=== PATIENT | female | born 1935 | race Caucasian/White ===

== ENCOUNTER 2017-06-22 19:33 | Emergency (ER) | payer MEDICARE, BC ==
[2017-06-22] MEDS ORDERED: HYDROcodone/Acetaminophen 5/325 mg Tablet ONE (22:10)
--- NOTE | 2017-06-22 22:12 | RAD ---
LEFT FEMUR TWO VIEWS: 06/22/17 HISTORY: 82-year-old female with history of femur pain following an injury. No evidence for acute fracture or dislocation. IMPRESSION: No fracture or dislocation. POS: KEYA
--- NOTE | 2017-06-22 22:37 | CT ---
LUMBAR SPINE CT WITHOUT IV CONTRAST: 06/22/17 HISTORY: 82-year-old female with low back pain following a fall on Tuesday. There is heterogeneous bone demineralization. There is some generalized spondylosis. There is partial ly visualized low attenuation focus in the liver measuring approximately 2.3 cm, I favor this being a cyst although it is completely seen and incompletely evaluated. There is some disc bulging at L3-L4 with some moderate lateral recess stenosis and foraminal stenosis. At L4-L5, mild lateral recess stenosis and foraminal stenosis. Disc bulging and disc osteophytosis at L5-S1 with mild lateral recess stenosis. IMPRESSION: No evidence for acute lumbar spine fracture or dislocation. Bone demineralization. Variable severity canal, lateral recess, and foraminal stenosis as above. Mild levoscoliosis. POS: KEYA
== END 2017-06-22 22:35 | disposition home or self-care (01) ==
LOC: ERS 19:33
DX: M54.5 Low back pain (principal); M79.652 Pain in left thigh; I48.91 Unspecified atrial fibrillation; E11.9 Type 2 diabetes mellitus without complications; E78.5 Hyperlipidemia, unspecified; I10 Essential (primary) hypertension; Z79.899 Other long term (current) drug therapy; Z79.82 Long term (current) use of aspirin
CPT/HCPCS: 72131

== ENCOUNTER 2018-12-20 12:45 | Outpatient (CLI) | payer MEDICARE, BC ==
--- NOTE | 2018-12-20 14:35 | MRI ---
MRI LUMBAR SPINE WITHOUT CONTRAST: HISTORY: M48.061, degenerative lumbar spinal stenosis. COMPARISON: CT lumbar spine from 06/22/2017. FINDINGS: Aortic contour is nonaneurysmal. No retroperitoneal or periaortic adenopathy. The right kidney is atrophic. Small renal cysts. Moderate bilateral symmetric paraspinal muscle atrophy. No marrow infiltrative process. The conus med ullaris terminates near the superior endplate of L1. Levels are as follows: L1-L2: Mild disk desiccation and height loss. Mild facet arthropathy. No neural foraminal or spinal c anal narrowing. L2-L3: Mild disk desiccation and height loss. Circumferential disk bulge. Mild facet arthrosis. No si gnificant neural foraminal or spinal canal narrowing. L3-L4: Mild degenerative disk space height loss. Moderate facet arthrosis with right greater than lef t facet joint effusion. Circumferential disk bulge, greatest in the subforaminal zones. Moderate righ t and left neural foraminal narrowing with abutment of the right exiting nerve root and both traversi ng nerve roots. Mild effacement of the ventral CSF space with the spinal canal measuring approximatel y a centimeter. L4-L5: Moderate degenerative disk space height loss. Circumferential disk bulge. Moderate to severe h ypertrophic facet arthropathy. Moderate bilateral neural foraminal narrowing. There is abutment of th e left exiting and bilateral traversing nerve roots. The spinal canal measures approximately 11 mm. L5-S1: Moderate posterior degenerative disk space height loss. Moderate to severe hypertrophic facet arthrosis. The combination of these findings causes moderate to severe left and moderate right neural foraminal narrowing. Abutment of the left exiting and traversing nerve roots. IMPRESSION: Multilevel spondylosis and nerve root abutment, as described. POS: CET
== END 2018-12-20 12:46 | disposition home or self-care (01) ==
LOC: BICMRI 12:45
PROVIDERS: ATTEND Family Medicine
DX: M48.061 Spinal stenosis, lumbar region without neurogenic claudication (principal); M47.816 Spondylosis without myelopathy or radiculopathy, lumbar region
CPT/HCPCS: 72148

== ENCOUNTER 2020-02-11 21:03 | Emergency (ER) | payer MEDICARE, BC ==
[2020-02-11 21:30] LABS: #Lymphocytes 1.9 thou/uL (1.20-3.40); #Monocytes 1.3 thou/uL (0.11-0.59); #Neutrophils 10.6 thou/uL (1.40-6.50); %Basophils 0.2 % (0.0-1.0); %Eosinophils 0.2 % (0.0-10.0); %Lymphocytes 13.6 % (21.0-51.0); %Monocytes 9.3 % (0.0-10.0); %Neutrophils 76.7 % (42.0-75.0); Hemoglobin 13.3 g/dL (12.0-16.0); Mean Corpuscular HGB CONC 33.9 g/dL (32.0-36.0); Mean Corpuscular Hemoglobin 30.9 pg (27.0-31.0); Mean Platelet Volume 7.3 fL (7.4-10.4); Platelet Count 273 thou/uL (130-400); RBC Distribution Width 12.4 % (11.5-14.5); Red Blood Cell (RBC) Count 4.32 mill/uL (4.20-5.40); White Blood Cell (WBC) Count 13.8 thou/uL (4.8-10.8)
[2020-02-11 21:53] LABS: ALT (SGPT) 23 U/L (8-55); AST (SGOT) 22 U/L (5-34); Albumin 4.4 g/dL (3.4-4.8); Alkaline Phosphatase 64 U/L (40-110); Anion Gap 17 mmol/L (10-20); BUN (Urea Nitrogen) 21 mg/dL (9.8-20.1); Bilirubin, Total 0.2 mg/dL (0.2-1.2); Calc. Creatinine Clearance 0 mL/min (70-130); Calcium 9.8 mg/dL (7.8-10.44); Carbon Dioxide 20 mmol/L (23-31); Chloride 100 mmol/L (98-107); Estimated GFR-MDRD 27; Globulin 3.3 g/dL (2.4-3.5); Glucose 139 mg/dL (83-110); Potassium 3.8 mmol/L (3.5-5.1); Protein, Total 7.7 g/dL (6.0-8.3); Sodium 133 mmol/L (136-145)
--- NOTE | 2020-02-11 21:58 | RAD ---
Portable frontal chest radiograph: 02/11/2020 COMPARISON: 07/31/2016 HISTORY: Shaking all day, dizziness with leg swelling FINDINGS: Multiple old right-sided rib fractures are again noted. Heart and mediastinal contours are stable. No pneumothorax or pleural fluid. No focal consolidation or alveolar edema. There is prominent degenerative change involving bilateral shoulders. IMPRESSION: No acute findings.
--- NOTE | 2020-02-11 22:22 | CT ---
Head CT without contrast 02/11/2020: COMPARISON: 07/31/2016 HISTORY: Headache TECHNIQUE: Axial CT imaging at 5 mm intervals from vertex through skull base without contrast FINDINGS: The visualized paranasal sinuses and mastoid air cells are well-aerated. No displaced tej rial fracture. No intracranial hemorrhage, midline shift, mass effect, or ventricular enlargement. IMPRESSION: Stable head CT. No intracranial hemorrhage.
[2020-02-11 23:10] LABS: Bilirubin Negative (Negative); Blood, Urine Negative (Negative); Clarity Turbid (Clear); Glucose, Urine (Dipstick) Normal (Negative); Ketone, Urine Negative (Negative); Leukocyte 75 Leu/uL (Negative); Nitrite Negative (Negative); Protein, Urine (Dipstick) 30 mg/dL (Neg-Trace); RBC/HPF 0-3 HPF (0-3); Specific Gravity, Urine 1.016 (1.002-1.036); Squamous Epithelial 0-3 HPF (0-3); Urobilinogen Normal mg/dL (Less than 2)
[2020-02-11 23:11] LABS: Bacteria/HPF Rare-Few HPF (None Seen)
== END 2020-02-11 23:25 | disposition home or self-care (01) ==
LOC: ERS 21:03
DX: N39.0 Urinary tract infection, site not specified (principal); E86.0 Dehydration; Z79.899 Other long term (current) drug therapy; Z79.82 Long term (current) use of aspirin; I48.91 Unspecified atrial fibrillation; E11.9 Type 2 diabetes mellitus without complications; E78.5 Hyperlipidemia, unspecified; E78.00 Pure hypercholesterolemia, unspecified; I10 Essential (primary) hypertension
CPT/HCPCS: 36415; 70450; 71045; 80053; 81003; 81015; 83880; 84484; 85025; 87086; 93005

== ENCOUNTER 2020-03-28 13:02 | Outpatient (CLI) | payer MEDICARE, BC ==
--- NOTE | 2020-03-28 14:11 | ULT ---
Exam: Bilateral renal ultrasound HISTORY: Recurrent urinary tract infection. COMPARISON: None FINDINGS: Right kidney: Normal cortical echotexture. No hydronephrosis. There is renal cortical thinning. Right kidney measurements: 8.8 x 3.6 x 4.8 cm. Left kidney: Normal cortical echotexture. No hydronephrosis. There is renal cortical thinning. Left kidney measurements 6 5.0 x 4.5 x 10.4 cm. Urinary bladder: Normal mucosa. IMPRESSION: No hydronephrosis.
== END 2020-03-28 13:03 | disposition home or self-care (01) ==
LOC: BICULT 13:02
PROVIDERS: ATTEND Student in an Organized Health Care Education/Training Program
DX: N39.0 Urinary tract infection, site not specified (principal)
CPT/HCPCS: 76770

== ENCOUNTER 2020-04-15 15:09 | Emergency (ER) | payer MEDICARE, BC ==
[2020-04-15 15:53] LABS: #Basophils 0.1 thou/uL (0.0-0.2); #Eosinphils 0.1 thou/uL (0.0-0.7); #Lymphocytes 3.7 thou/uL (1.20-3.40); #Monocytes 0.9 thou/uL (0.11-0.59); #Neutrophils 6.9 thou/uL (1.40-6.50); %Basophils 0.9 % (0.0-1.0); %Eosinophils 0.7 % (0.0-10.0); %Lymphocytes 31.4 % (21.0-51.0); %Monocytes 8.1 % (0.0-10.0); Hemoglobin 14.1 g/dL (12.0-16.0); Mean Corpuscular HGB CONC 34.2 g/dL (32.0-36.0); Mean Corpuscular Hemoglobin 31.2 pg (27.0-31.0); Mean Corpuscular Volume 91.2 fL (78.0-98.0); Mean Platelet Volume 7.4 fL (7.4-10.4); Platelet Count 275 thou/uL (130-400); RBC Distribution Width 12.1 % (11.5-14.5); Red Blood Cell (RBC) Count 4.51 mill/uL (4.20-5.40); White Blood Cell (WBC) Count 11.6 thou/uL (4.8-10.8)
[2020-04-15 16:15] LABS: ALT (SGPT) 17 U/L (8-55); AST (SGOT) 27 U/L (5-34); Albumin 4.3 g/dL (3.4-4.8); Alkaline Phosphatase 64 U/L (40-110); Anion Gap 17 mmol/L (10-20); BUN (Urea Nitrogen) 8 mg/dL (9.8-20.1); Bilirubin, Total 0.9 mg/dL (0.2-1.2); Calc. Creatinine Clearance 0 mL/min (70-130); Calcium 9.6 mg/dL (7.8-10.44); Carbon Dioxide 21 mmol/L (23-31); Chloride 96 mmol/L (98-107); Glucose 101 mg/dL (83-110); Potassium 5.3 mmol/L (3.5-5.1); Protein, Total 8.3 g/dL (5.8-8.1); Sodium 129 mmol/L (136-145)
[2020-04-15 16:25] LABS: Bilirubin Negative (Negative); Blood, Urine Negative (Negative); Clarity Clear (Clear); Glucose, Urine (Dipstick) Normal (Negative); Ketone, Urine Negative (Negative); Leukocyte 75 Leu/uL (Negative); Nitrite Negative (Negative); Protein, Urine (Dipstick) Negative (Neg-Trace); RBC/HPF 0-3 HPF (0-3); Specific Gravity, Urine 1.005 (1.002-1.036); Squamous Epithelial 0-3 HPF (0-3); Urobilinogen Normal mg/dL (Less than 2); pH, Urine 6.5 (5.0-9.0)
[2020-04-15 16:26] LABS: Bacteria/HPF 1+ HPF (None Seen)
== END 2020-04-15 16:56 | disposition home or self-care (01) ==
LOC: ERS 15:09
DX: N39.0 Urinary tract infection, site not specified (principal); I49.9 Cardiac arrhythmia, unspecified; I48.91 Unspecified atrial fibrillation; E11.9 Type 2 diabetes mellitus without complications; E78.5 Hyperlipidemia, unspecified; E78.00 Pure hypercholesterolemia, unspecified; I10 Essential (primary) hypertension; Z79.82 Long term (current) use of aspirin; Z79.899 Other long term (current) drug therapy
CPT/HCPCS: 80053; 81003; 81015; 85025; 87086; 99283

== ENCOUNTER 2022-02-18 10:58 | Outpatient (CLI) | payer MEDICARE, BC | END 2022-02-18 10:59 | disposition home or self-care (01) | LOC: PET 10:58 | PROVIDERS: ATTEND Psychiatry & Neurology Neurology | DX: R41.3 Other amnesia (principal); I67.9 Cerebrovascular disease, unspecified; J34.89 Other specified disorders of nose and nasal sinuses | CPT/HCPCS: 70551; 78803; A9552 ==

== ENCOUNTER 2022-09-07 08:33 | Outpatient (CLI) | payer MEDICARE, BC | END 2022-09-07 08:34 | disposition home or self-care (01) | LOC: NM 08:33 | PROVIDERS: ATTEND Psychiatry & Neurology Neurology | DX: R26.9 Unspecified abnormalities of gait and mobility (principal); G20 Parkinson's disease | CPT/HCPCS: 78803; A9584 ×2 ==

== ENCOUNTER 2022-11-02 12:06 | Outpatient (CLI) | payer MEDICARE, BC | END 2022-11-02 12:07 | disposition home or self-care (01) | LOC: BICULT 12:06 | PROVIDERS: ATTEND Internal Medicine Nephrology | DX: N18.30 Chronic kidney disease, stage 3 unspecified (principal) | CPT/HCPCS: 76770 ==

== ENCOUNTER 2023-02-07 08:48 | Inpatient (IN) | payer MEDICARE, BC ==
[2023-02-07 09:27] LABS: #Monocytes 1.1 thou/uL (0.11-0.59); #Neutrophils 8.1 thou/uL (1.40-6.50); %Basophils 0.3 % (0.0-1.0); %Eosinophils 0.1 % (0.0-10.0); %Lymphocytes 16.4 % (21.0-51.0); %Neutrophils 72.7 % (42.0-75.0); Hematocrit 40.5 % (36.0-47.0); Hemoglobin 13.7 g/dL (12.0-16.0); Mean Corpuscular HGB CONC 33.8 g/dL (32.0-36.0); Mean Corpuscular Hemoglobin 30.7 pg (27.0-31.0); Mean Corpuscular Volume 90.8 fl (78.0-98.0); Mean Platelet Volume 9.7 fL (7.4-10.4); Platelet Count 288 10x3/uL (130-400); RBC Distribution Width 13.2 % (11.5-14.5); Red Blood Cell (RBC) Count 4.46 mill/uL (4.20-5.40); White Blood Cell (WBC) Count 11.1 10x3/uL (4.8-10.8)
[2023-02-07 10:35] LABS: Bilirubin Negative (Negative); Blood, Urine Negative (Negative); CAUTI Indications for Culture Acute Hematuria; Clarity Clear (Clear); Glucose, Urine (Dipstick) Normal (Negative); Ketone, Urine Negative (Negative); Leukocyte 25 Leu/uL (Negative); Nitrite Negative (Negative); Protein, Urine (Dipstick) Negative (Neg-Trace); RBC/HPF 0-3 HPF (0-3); Specific Gravity, Urine 1.007 (1.002-1.036); Squamous Epithelial 0-3 HPF (0-3); Urobilinogen Normal mg/dL (Less than 2); WBC/HPF 0-3 HPF (0-3)
[2023-02-07 10:48] LABS: ALT (SGPT) 30 U/L (8-55); AST (SGOT) 37 U/L (5-34); Alkaline Phosphatase 65 U/L (40-110); Anion Gap 17 mmol/L (10-20); BUN (Urea Nitrogen) 12 mg/dL (9.8-20.1); Bilirubin, Total 0.3 mg/dL (0.2-1.2); CK (CPK) 554 U/L (29-168); Calc. Creatinine Clearance 0 mL/min (70-130); Calcium 9.8 mg/dL (7.8-10.44); Carbon Dioxide 20 mmol/L (23-31); Estimated GFR 47; Globulin 3.2 g/dL (2.4-3.5); Glucose 98 mg/dL (83-110); Potassium 3.2 mmol/L (3.5-5.1); Protein, Total 7.2 g/dL (5.8-8.1)
[2023-02-07 10:48] LABS: Bacteria/HPF 1+ HPF (None Seen)
[2023-02-07 10:50] LABS: Urine Culture Reflex No No
[2023-02-07 10:59] LABS: Chloride 100 mmol/L (98-107); Sodium 134 mmol/L (136-145)
[2023-02-07] MEDS ORDERED: cefTRIAXone (ROCEPHIN) 1 GM VIAL ONE (11:14)
[2023-02-07] MEDS ORDERED: Sodium Chloride 0.9% 100 ML ONE (11:14)
[2023-02-07] MEDS ORDERED: Acetaminophen 325 MG TAB PO PRN (11:39)
[2023-02-07] MEDS ORDERED: Ondansetron PF 4 MG/2 ML Vial IVP PRN (11:39)
[2023-02-07] MEDS ORDERED: Ondansetron ODT 4 MG TAB PO PRN (11:39)
[2023-02-07] MEDS ORDERED: HumaLOG 300 UNITS/3 ML VIAL SC PRN ×2 (11:46)
[2023-02-07] MEDS ORDERED: Dextrose 50% Abboject 50 ML SYRINGE SLOW IVP PRN (11:46)
[2023-02-07] MEDS ORDERED: Glucagon 1 MG/ML KIT IM PRN (11:46)
[2023-02-07] MEDS ORDERED: Dextrose 5% in Water 1,000 ML IV PRN (11:46)
[2023-02-07] MEDS ORDERED: Potassium Chloride 20 MEQ TAB PO SCH (12:00)
[2023-02-07] MEDS ORDERED: Electrolyte Replacement Protocol 1 EACH FS SCH (12:15)
[2023-02-07 12:26] LABS: Lactic Acid 2.2 mmol/L (0.5-2.2)
[2023-02-07] MEDS ORDERED: Potassium Chloride 20 MEQ TAB ONE (13:09)
[2023-02-07] MEDS ORDERED: Electrolyte Replacement Protocol FS PRN (13:15)
[2023-02-07] MEDS: Sodium Chloride 0.9% 1,000 ML IV SCH (13:19)
[2023-02-07 15:45] VITALS: BMI 20.5
[2023-02-07 17:37] LABS: Hemoglobin A1c 5.9 % (4.0-6.0)
[2023-02-07 17:56] LABS: Potassium 3.7 mmol/L (3.5-5.1)
[2023-02-08] MEDS: Sodium Chloride 0.9% 1,000 ML IV SCH ×2 (03:54→14:19)
[2023-02-08 06:42] LABS: Anion Gap 12 mmol/L (10-20); BUN (Urea Nitrogen) 8 mg/dL (9.8-20.1); Calc. Creatinine Clearance 37 mL/min (70-130); Calcium 8.2 mg/dL (7.8-10.44); Carbon Dioxide 20 mmol/L (23-31); Chloride 109 mmol/L (98-107); Estimated GFR 67; Glucose 72 mg/dL (83-110); Potassium 3.8 mmol/L (3.5-5.1); Sodium 137 mmol/L (136-145)
[2023-02-08 07:34] LABS: #Eosinphils 0.1 thou/uL (0.0-0.7); #Monocytes 0.8 thou/uL (0.11-0.59); #Neutrophils 4.9 thou/uL (1.40-6.50); %Basophils 0.4 % (0.0-1.0); %Eosinophils 1.4 % (0.0-10.0); %Lymphocytes 27.9 % (21.0-51.0); %Monocytes 9.9 % (0.0-10.0); %Neutrophils 59.9 % (42.0-75.0); Hematocrit 37.5 % (36.0-47.0); Hemoglobin 12.3 g/dL (12.0-16.0); Mean Corpuscular HGB CONC 32.8 g/dL (32.0-36.0); Mean Corpuscular Hemoglobin 30.1 pg (27.0-31.0); Mean Corpuscular Volume 91.9 fl (78.0-98.0); RBC Distribution Width 13.4 % (11.5-14.5); Red Blood Cell (RBC) Count 4.08 mill/uL (4.20-5.40); White Blood Cell (WBC) Count 8.1 10x3/uL (4.8-10.8)
[2023-02-08 07:38] LABS: Platelet Count 177 10x3/uL (130-400)
[2023-02-08] MEDS ORDERED: cefTRIAXone\\ROCEPHIN 1 GM in Sodium Chloride 0.9% 100 ML IVPB SCH (12:00)
[2023-02-08] MEDS ORDERED: dilTIAZem CD 120 MG CAP PO SCH (13:15)
[2023-02-08] MEDS ORDERED: Dronedarone HCl 400 MG TAB PO SCH ×2 (13:15→21:00)
[2023-02-08 17:33] VITALS: BP 144/76; TEMP 98.1
[2023-02-08] MEDS ORDERED: Mirtazapine 15 MG TAB PO SCH (21:00)
[2023-02-08] MEDS ORDERED: Donepezil HCl 10 MG TAB PO SCH (21:00)
[2023-02-09] MEDS ORDERED: Losartan 25 MG TAB PO SCH (09:00)
[2023-02-09] MEDS ORDERED: Atorvastatin Calcium 40 MG TAB PO SCH (09:00)
[2023-02-09] MEDS ORDERED: dilTIAZem CD 120 MG CAP PO SCH (09:00)
== END 2023-02-08 18:03 | disposition home or self-care (01) | DRG 690 ==
LOC: ERS 08:48 → ERHOLD 11:46 → T4-B 15:29
PROVIDERS: ADMIT Family Medicine; ATTEND Internal Medicine
DX: N39.0 Urinary tract infection, site not specified (principal); E11.9 Type 2 diabetes mellitus without complications; I10 Essential (primary) hypertension; E78.5 Hyperlipidemia, unspecified; I48.91 Unspecified atrial fibrillation; W18.30XA Fall on same level, unspecified, initial encounter; S09.90XA Unspecified injury of head, initial encounter; F32.A Depression, unspecified; D72.829 Elevated white blood cell count, unspecified; T79.6XXA Traumatic ischemia of muscle, initial encounter; E86.0 Dehydration; E87.6 Hypokalemia; R53.1 Weakness; S00.03XA Contusion of scalp, initial encounter; E04.2 Nontoxic multinodular goiter; M47.812 Spondylosis without myelopathy or radiculopathy, cervical region; Z79.82 Long term (current) use of aspirin; Z79.899 Other long term (current) drug therapy; Z90.710 Acquired absence of both cervix and uterus; Z98.890 Other specified postprocedural states; R63.0 Anorexia
CPT/HCPCS: 36415; 36416; 51701; 70450; 72125; 80048; 80053; 81001; 82274; 82550; 83036; 83605; 83880; 85025; 87040; 87086; 93005; 93010; 96361; 96365; J0696; J3490; J7050